=== PATIENT | female | born 1970 | race Two or more races ===

== ENCOUNTER 2021-12-29 19:22 | Emergency (ER) | payer OTHER ==
[~2021-12-29] VITALS: Ht 160 cm; Wt 74.8 kg
[2021-12-29 19:42] VITALS: BP 129/84
--- NOTE | 2021-12-29 19:44 | NUR ---
TIFFANY. LOWER BACK & LOWER ABD PAIN X YESTERDAY. URINARY FREQUENCY
--- NOTE | 2021-12-29 19:47 | NUR ---
URINE SAMPLE SENT TO LAB
[2021-12-29] MEDS ORDERED: CEPH500C2 PO (20:00)
--- NOTE | 2021-12-29 20:07 | NUR ---
Patient discharged to home in stable condition. Written and verbal after care instructions given. Patient verbalizes understanding of instruction.
[2021-12-29 20:30] LABS: BILIRUBIN,URINE NEGATIVE (NEGATIVE); COLOR,URINE YELLOW (YELLOW); LEUKOCYTE ESTERASE ,URINE LARGE (NEGATIVE); NITRITE, URINE POSITIVE (NEGATIVE); PH,URINE 6.5 (5.0-8.0); PROTEIN,URINE 30 mg/dl (NEGATIVE); UGLUCOSE NEGATIVE (NEGATIVE); UROBILINOGEN,URINE 0.2 EU/dL (0.2)
[2021-12-29] MEDS ORDERED: CEPHALEXIN MONOHYDRATE 500 MG CAPSULE PO ONE ×2 (20:43→21:00)
[2021-12-29 21:19] LABS: BACTERIA,URINE 3+ /HPF (None Seen); RBC,URINE 21-50 /HPF (0-2); WBC,URINE 81-100 /HPF (0-3)
== END 2021-12-29 20:07 | disposition home or self-care (01) ==
LOC: ER 19:30
DX: N39.0 Urinary tract infection, site not specified (principal); E11.9 Type 2 diabetes mellitus without complications; Z88.8 Allergy status to other drugs, medicaments and biological substances
CPT/HCPCS: 81001; 87086-TC; 87186-TC